=== PATIENT | female | born 1980 | race African-American/Black ===

== ENCOUNTER 2017-09-06 13:35 | Emergency (ER) | payer OTHER ==
[~2017-09-06] VITALS: Ht 172.7 cm; Wt 117.9 kg
[~2017-09-06 13:35] MED LIST: AMOXICILLIN500 M1 PO; ARMOUR THYROID90 M1 PO; AUGMENTIN 875875 MG PO; BACTRIM DS TAB1 EACH PO; CIPROFLOXACIN500 M1 PO; KEFLEX500 MG PO; LEVOXYL; NORCO 5-325 TA1 EACH PO; TRAMADOL 50 MG50 MG PO; ULTRAM 50MG TAB50 MG PO; ZOFRAN4 MG PO
[2017-09-06] MEDS ORDERED: NP THYROID60 MG PO (13:50)
[2017-09-06] MEDS ORDERED: NP THYROID 120120 MG PO (13:51)
[2017-09-06] MEDS ORDERED: IBUPROFEN 800800 MG PO (14:31)
[2017-09-06 14:50] VITALS: BP 164/107
== END 2017-09-06 14:51 | disposition home or self-care (01) ==
LOC: M.ERS 13:35
DX: M79.671 Pain in right foot (principal); F17.200 Nicotine dependence, unspecified, uncomplicated